=== PATIENT | female | born 1985 | race African-American/Black ===

== ENCOUNTER 2017-01-21 14:09 | Emergency (ER) | payer BC ==
[~2017-01-21] VITALS: Ht 157.5 cm; Wt 104.3 kg
[2017-01-21 14:27] VITALS: BP 120/73
--- NOTE | 2017-01-21 14:47 | PHYS DOC ---
Past Medical History Past Medical History: Asthma, Depression, Sinusitis, Other Additional Past Medical Histor: SEASONAL ALLERGIES Past Surgical History: , Tonsillectomy, Other Additional Past Surgical Histo: GANGLIAN CYST, PARTIAL TAIL BONE REMOVE, SINUS SURGERY, ADENOIDECTOMY Alcohol Use: Rarely Drug Use: None Adult General Chief Complaint Chief Complaint: ANKLE PROBLEM HPI HPI Patient is a 31 year old female with history of depression and asthma who presents today with mild right lateral ankle pain that began a couple days ago. Patient says for the last 1 week she's had a very busy week moving and getting her house ready for sale. Patient denies any trauma. Review of Systems Review of Systems Constitutional: Denies fever or chills [] Eyes: Denies change in visual acuity, redness, or eye pain [] HENT: Denies nasal congestion or sore throat [] Musculoskeletal: Right ankle pain Integument: Denies rash or skin lesions [] Neurologic: Denies headache, focal weakness or sensory changes [] Endocrine: Denies polyuria or polydipsia [] Allergies Allergies Allergies Coded Allergies Type Severity Reaction Last Updated Verified No Known Drug Allergies 07/31/15 No Physical Exam Physical Exam Constitutional: Well developed, well nourished, no acute distress, non-toxic appearance. [] HENT: Normocephalic, atraumatic, bilateral external ears normal, oropharynx moist, no oral exudates, nose normal. [] Eyes: PERRLA, EOMI, conjunctiva normal, no discharge. [] Skin: Warm, dry, no erythema, no rash. [] Back: No tenderness, no CVA tenderness. Extremity: Right lateral ankle with small amount of soft tissue swelling. No tenderness on exam. Full range of motion to the right ankle. Patient able to flex and extend the right ankle with no difficulties. +2 right pedal pulse. Cap refill less than 2 seconds the right lower extremity. Sensation intact to the right lower extremity Neurologic: Alert and oriented X 3, normal motor function, normal sensory function, no focal deficits noted. [] Psychologic: Affect normal, judgement normal, mood normal. [] Current Patient Data Vital Signs Vital Signs Date Time Temp Pulse Resp B/P (MAP) Pulse Ox O2 Delivery O2 Flow Rate FiO2 01/21/17 14:27 98.1 82 16 97 Room Air 98.1 EKG EKG [] Radiology/Procedures Radiology/Procedures []PROCEDURE: ANKLE RIGHT 3V Exam performed :Right ankle 3 views Clinical indication: Pain and soreness lateral aspect of the ankle, no injury Date of service: 01/21/17 .Comparison:None available Finding: AP, oblique and lateral radiographs of the ankle reveal the osseous structures to be intact and well aligned. The joint spaces are well-preserved. The articular margins are smooth. Evidence of fracture or dislocation is not identified. Mild soft tissue swelling is seen Impression: No acute abnormality seen in the right ankle DICTATED and SIGNED BY: DOLORES BAUMAN MD DATE: 01/21/17 1519 CC: DONY ALBRECHT MD; HERIBERTO FERNÁNDEZ APRN; NON,STAFF ~ Course & Med Decision Making Course & Med Decision Making Pertinent Labs and Imaging studies reviewed. (See chart for details) Patient is in the ED with right ankle pain no known injury. She's had a busy week moving. Right ankle x-rays interpreted by radiologist are negative for any acute findings. Patient has right ankle sprain. Armando wrap applied to the right ankle by the ED RN, neurovascular exam is normal, cap refill less than 2 seconds ice elevation encouraged. Follow-up with orthopedic doctor in one week. Dragon Disclaimer Dragon Disclaimer This electronic medical record was generated, in whole or in part, using a voice recognition dictation system. Departure Departure Impression: Primary Impression: Right ankle sprain Disposition: 01 HOME, SELF-CARE Condition: STABLE Referrals: DONY ALBRECHT MD (PCP) KEANU OLEA MD follow-up with the provided orthopedic doctor in one week if pain continues Patient Instructions: Ankle Sprain Additional Instructions: You were seen for right ankle sprain. Your x-rays of the ankle were negative. Ice and elevate the extremity. Wear the Armando wrap as tolerated. Take ibuprofen or naproxen or Tylenol as needed for pain. Follow-up with the orthopedic doctor provided in one week if pain continues. Problem Qualifiers Primary Impression: Right ankle sprain Encounter type: initial encounter Involved ligament of ankle: unspecified ligament Qualified Codes: S93.401A - Sprain of unspecified ligament of right ankle, initial encounter HERIBERTO FERNÁNDEZ APRN January 21, 2017 14:47
--- NOTE | 2017-01-21 15:22 | RAD ---
Exam performed :Right ankle 3 views Clinical indication: Pain and soreness lateral aspect of the ankle, no injury Date of service: 01/21/17 .Comparison:None available Finding: AP, oblique and lateral radiographs of the ankle reveal the osseous structures to be intact and well aligned. The joint spaces are well-preserved. The articular margins are smooth. Evidence of fracture or dislocation is not identified. Mild soft tissue swelling is seen Impression: No acute abnormality seen in the right ankle
== END 2017-01-21 15:36 | disposition home or self-care (01) ==
LOC: ER 14:09
DX: S93.401A Sprain of unspecified ligament of right ankle, initial encounter (principal); J45.909 Unspecified asthma, uncomplicated; F32.9 Major depressive disorder, single episode, unspecified; X58.XXXA Exposure to other specified factors, initial encounter; Y93.89 Activity, other specified; Y92.89 Other specified places as the place of occurrence of the external cause; Y99.8 Other external cause status
CPT/HCPCS: 73610; 99284